=== PATIENT | male | born 1955 | race Two or more races ===

== ENCOUNTER 2021-12-09 09:16 | Outpatient (CLI) | payer OTHER ==
[~2021-12-09 09:16] MED LIST: ACETAMINOOPHEN-1 TAB PO; AMBIEN10 MG PO; CIPRO750 MG PO; Colace 100MG PO; NEURONTIN PO
== END 2021-12-09 09:17 | disposition home or self-care (01) ==
LOC: LAB 09:16
PROVIDERS: ATTEND Family Medicine
DX: E04.1 Nontoxic single thyroid nodule (principal); E03.9 Hypothyroidism, unspecified

== ENCOUNTER 2021-12-09 12:06 | Outpatient (CLI) | payer OTHER | END 2021-12-09 12:07 | disposition home or self-care (01) | LOC: SONOGRAMA 12:06 | PROVIDERS: ATTEND Pathology Anatomic Pathology & Clinical Pathology | DX: E04.1 Nontoxic single thyroid nodule (principal) ==